=== PATIENT | female | born 1995 | race Two or more races ===

== ENCOUNTER 2018-10-22 04:40 | Emergency (ER) | payer SELFPAY ==
[~2018-10-22] VITALS: Ht 154.9 cm; Wt 49.0 kg
[2018-10-22 05:02] VITALS: BP 106/67
[2018-10-22 05:10] LABS: BILIRUBIN,URINE NEGATIVE (NEG); CLARITY,URINE CLEAR; COLOR,URINE YELLOW; NITRITE,URINE NEGATIVE (NEG); PH,URINE 6.5; PROTEIN,URINE NEGATIVE (NEG-TRACE); UROBILINOGEN,URINE 0.2 mg/dL (0.2 mg/dL)
[2018-10-22 05:14] LABS: U PREG PATIENT NEGATIVE (NEG)
[2018-10-22 05:19] LABS: BACTERIA,URINE MODERATE /HPF (0-FEW); SQUAMOUS EPITHELIAL CELL,UR FEW /LPF
--- NOTE | 2018-10-22 05:55 | PHYS DOC ---
Past Medical History Past Medical History: No Pertinent History Past Surgical History: No Surgical History Alcohol Use: Occasionally Drug Use: None Adult General Chief Complaint Chief Complaint: BACK PAIN OR INJURY HPI HPI Patient is a 23 year old female who presents with back pain and vomiting for the last 24 hours. The patient states she had fever and back pain on Wednesday when she went to her doctor, who diagnosed her with a kidney infection. She was prescribed ciprofloxacin, which she has been taking except, for her last dose at midnight, that she was unable to take due to vomiting. She reports feeling bett er after beginning the antibiotic until Wednesday morning when she began to vomit. She reports 4 episodes of non-bloody, non-bilious vomitus since that time. The last episode was 15 minutes prior to arrival. She currently reports continued nausea. She states she has had intermittent back pain for the past 3 months that has progressively gotten worse. She states the pain started on the left, lower side and has progressed to the right side. Her back pain is currently 5 out of 10 in severity. She has been taking one to 1.2 g per day of ibuprofen which has helped with the pain moderately. She reports increased urgency and frequency still but denies any dysuria or hematuria. Her last menstrual period was 3 weeks ago. She denies any sexual activity but also denies any form of contraception. Review of Systems Review of Systems Constitutional: Reports resolved fever Eyes: Denies redness or eye pain HENT: Denies nasal congestion or sore throat Respiratory: Denies cough or shortness of breath Cardiovascular: Denies chest pain or palpitations GI: Denies abdominal pain, reports nausea and vomiting : Denies dysuria or hematuria. Reports urgency and frequency. Musculoskeletal: Reports lower back pain Integument: Denies rash or skin lesions Neurologic: Denies headache, focal weakness or sensory changes Complete systems were reviewed and found to be within normal limits, except as documented in this note. Current Medications Current Medications Current Medications Medications (Trade) Dose Ordered Sig/Felix Start Time Stop Time Status Last Admin Dose Admin Ceftriaxone Sodium (Rocephin) 1 gm 1X ONCE 10/22/18 06:30 10/22/18 06:31 Famotidine (Pepcid Vial) 20 mg 1X ONCE 10/22/18 06:00 10/22/18 06:01 DC 10/22/18 05:46 20 MG Ketorolac Tromethamine (Toradol 30mg Vial) 15 mg 1X ONCE 10/22/18 06:00 10/22/18 06:01 DC 10/22/18 05:46 15 MG Metoclopramide HCl (Reglan Vial) 10 mg 1X ONCE 10/22/18 06:00 10/22/18 06:01 DC 10/22/18 05:46 10 MG Sodium Chloride 1,000 ml @ 1,000 mls/hr 1X ONCE 10/22/18 06:00 10/22/18 06:59 10/22/18 05:49 1,000 MLS/HR Allergies Allergies Allergies Coded Allergies Type Severity Reaction Last Updated Verified No Known Drug Allergies 10/22/18 No Physical Exam Physical Exam Constitutional: Well developed, well nourished, no acute distress, non-toxic appearance Eyes: PERRL, EOMI, conjunctiva normal, no discharge Neck: Normal range of motion, no tenderness, supple Cardiovascular: Heart rate normal, regular rhythm Lungs & Thorax: Bilateral breath sounds clear to auscultation, no wheezing Abdomen: Soft, diffuse tenderness Skin: Warm, dry, no erythema, no rash Back: b/l CVA tenderness. Tissue texture abnormalities of left paraspinal muscles at level of T10-T12. Extremities: No tenderness, ROM intact, no edema Neurologic: Alert and oriented X 3, normal motor function, normal sensory function, no focal deficits noted Psychologic: Affect normal, judgement normal, mood normal Current Patient Data Vital Signs Vital Signs Date Time Temp Pulse Resp B/P (MAP) Pulse Ox O2 Delivery O2 Flow Rate FiO2 10/22/18 05:02 98.7 79 16 106/67 (80) 98 Room Air 98.7 Lab Values Laboratory Tests Test 10/22/18 04:45 10/22/18 05:48 Urine Collection Type Unknown Urine Color Yellow Urine Clarity Clear Urine pH 6.5 Urine Specific Bob White 1.010 Urine Protein Negative mg/dL (NEG-TRACE) Urine Glucose (UA) Negative mg/dL (NEG) Urine Ketones (Stick) Negative mg/dL (NEG) Urine Blood Negative (NEG) Urine Nitrite Negative (NEG) Urine Bilirubin Negative (NEG) Urine Urobilinogen Dipstick 0.2 mg/dL (0.2 mg/dL) Urine Leukocyte Esterase Moderate (NEG) Urine RBC 1-2 /HPF (0-2) Urine WBC 5-10 /HPF (0-4) Urine Squamous Epithelial Cells Few /LPF Urine Bacteria Moderate /HPF (0-FEW) Urine Test Negative (NEG) White Blood Count 8.0 x10^3/uL (4.0-11.0) Red Blood Count 4.36 x10^6/uL (3.50-5.40) Hemoglobin 13.2 g/dL (12.0-15.5) Hematocrit 38.4 % (36.0-47.0) Mean Corpuscular Volume 88 fL (79-100) Mean Corpuscular Hemoglobin 30 pg (25-35) Mean Corpuscular Hemoglobin Concent 34 g/dL (31-37) Red Cell Distribution Width 12.6 % (11.5-14.5) Platelet Count 194 x10^3/uL (140-400) Neutrophils (%) (Auto) 74 % (31-73) H Lymphocytes (%) (Auto) 14 % (24-48) L Monocytes (%) (Auto) 11 % (0-9) H Eosinophils (%) (Auto) 0 % (0-3) Basophils (%) (Auto) 1 % (0-3) Neutrophils # (Auto) 5.9 x10^3uL (1.8-7.7) Lymphocytes # (Auto) 1.1 x10^3/uL (1.0-4.8) Monocytes # (Auto) 0.9 x10^3/uL (0.0-1.1) Eosinophils # (Auto) 0.0 x10^3/uL (0.0-0.7) Basophils # (Auto) 0.0 x10^3/uL (0.0-0.2) Sodium Level 140 mmol/L (136-145) Potassium Level 3.9 mmol/L (3.5-5.1) Chloride Level 105 mmol/L (98-107) Carbon Dioxide Level 26 mmol/L (21-32) Anion Gap 9 (6-14) Blood Urea Nitrogen 28 mg/dL (7-20) H Creatinine 1.4 mg/dL (0.6-1.0) H Estimated GFR (Cockcroft-Gault) 47.0 BUN/Creatinine Ratio 20 (6-20) Glucose Level 102 mg/dL (70-99) H Lactic Acid Level 1.3 mmol/L (0.4-2.0) Calcium Level 9.5 mg/dL (8.5-10.1) Magnesium Level 2.2 mg/dL (1.8-2.4) Total Bilirubin 0.4 mg/dL (0.2-1.0) Aspartate Amino Transferase (AST) 22 U/L (15-37) Alanine Aminotransferase (ALT) 21 U/L (14-59) Alkaline Phosphatase 68 U/L (46-116) Total Protein 7.7 g/dL (6.4-8.2) Albumin 3.8 g/dL (3.4-5.0) Albumin/Globulin Ratio 1.0 (1.0-1.7) Lipase 227 U/L (73-393) Laboratory Tests 10/22/18 05:48 Laboratory Tests 10/22/18 05:48 EKG EKG [] Radiology/Procedures Radiology/Procedures PROCEDURE: CT ABDOMEN PELVIS WO CONTRAST EXAM: CT Abdomen and Pelvis without IV contrast CLINICAL HISTORY: Bilateral flank pain. COMPARISON: none TECHNIQUE: Helical CT of the abdomen and pelvis without intravenous contrast. Axial, coronal and sagittal reformatted images were generated. PQRS compliance statement - One or more of the following individualized dose reduction techniques were utilized for this study: 1. Automated exposure control 2. Adjustment of the mA and/or kV according to patient size 3. Use of iterative reconstruction technique FINDINGS: Lack of intravenous contrast limits evaluation of solid organs, vasculature, and lymph nodes. Lower chest: Lung bases are clear. Abdomen and Pelvis: No focal liver lesion. Gallbladder is normal. No biliary ductal dilatation. Pancreas is unremarkable. Spleen is normal in appearance. Adrenal glands are unremarkable. A punctate nonobstructing left interpolar renal calculus is seen. No ureteral calculi. No hydronephrosis or hydroureter. Mild fat infiltration is seen about both kidneys. Fat infiltration about the bladder may be seen with cystitis. Moderate to large volume colonic stool content is seen. The appendix is normal. No small or large bowel dilatation. No evidence of bowel obstruction. No abdominal or pelvic lymphadenopathy. No abdominal or pelvic ascites. The uterus and adnexa are grossly unremarkable. Bones: Osseous structures are grossly unremarkable. IMPRESSION: 1. Fat infiltration about the kidneys bilaterally may be seen with pyelonephritis. 2. In addition inflammatory changes about the bladder may be seen with cystitis. 3. Punctate nonobstructing left interpolar renal calculus. No ureteral, right kidney or bladder calculi. No hydronephrosis or hydroureter Electronically signed by: Reece Fabian MD (10/22/2018 6:07 AM) [facility] Course & Med Decision Making Course & Med Decision Making Patient is a 23-year-old female who presents with vomiting and increased back pain for 1 day. The patient states she was diagnosed with a kidney infection on Wednesday and placed on ciprofloxacin treatment. The patient was given Reglan to treat nausea and for anti-spasmodic irritation of the ureters. CBC was ordered which was WNL. Urinalysis with culture showed signs of infection. 1g of Rocephin ordered for infection prophylaxis. Patient given Toradol for pain control with satisfactory relief. CT with findings consistent for pyelonephritis and signs of constipation. Will change to keflex and await UCX. Patient stable for discharge with outpatient follow-up with PCP. Discussed findings and plan with patient and family, who acknowledge understanding and agreement. Dragon Disclaimer Dragon Disclaimer This electronic medical record was generated, in whole or in part, using a voice recognition dictation system. Departure Departure Impression: Primary Impression: Pyelonephritis Additional Impression: Constipation Disposition: 01 HOME, SELF-CARE Condition: STABLE Patient Instructions: Constipation, Adult, [id number], Pyelonephritis, Adult, [id number] Scripts Cephalexin (KEFLEX) 500 Mg Capsule 500 MG PO TID for 7 Days, #21 CAP Prov: LIZBETH ENNIS DO 10/22/18 Ondansetron (ONDANSETRON ODT) 4 Mg Tab.rapdis 1 TAB PO PRN Q6-8HRS PRN for NAUSEA, #16 TAB Prov: LIZBETH ENNIS DO 10/22/18 Magnesium Citrate (MAGNESIUM CITRATE) 296 Ml Solution 296 ML PO ONCE, #296 ML Prov: LIZBETH ENNIS DO 10/22/18 Sennosides/Docusate Sodium (Colace 2-in-1 Tablet) 1 Each Tablet 1 EACH PO QHS PRN for CONSTIPATION, #14 TAB Prov: LIZBETH ENNIS DO 10/22/18 Problem Qualifiers Additional Impression: Constipation Constipation type: unspecified constipation type Qualified Codes: K59.00 - Constipation, unspecified LIZBETH ENNIS DO Oct 22, 2018 05:55
[2018-10-22 05:59] LABS: BASO % 1 % (0-3); EOS % 0 % (0-3); HEMATOCRIT 38.4 % (36.0-47.0); HEMOGLOBIN 13.2 g/dL (12.0-15.5); LYMPH # 1.1 x10^3/uL (1.0-4.8); LYMPH % 14 % (24-48); MEAN CORPUSCULAR HEMOGLOBIN 30 pg (25-35); MEAN CORPUSCULAR HGB CONC 34 g/dL (31-37); MEAN CORPUSCULAR VOLUME 88 fL (79-100); MONO # 0.9 x10^3/uL (0.0-1.1); MONO % 11 % (0-9); NEUT # 5.9 x10^3uL (1.8-7.7); NEUT % 74 % (31-73); PLATELET COUNT 194 x10^3/uL (140-400); RED BLOOD COUNT 4.36 x10^6/uL (3.50-5.40); RED CELL DISTRIBUTION WIDTH 12.6 % (11.5-14.5)
[2018-10-22] MEDS ORDERED: METOCLOPRAMIDE HCL 10 MG/2 ML VIAL. IV ONE (06:00)
[2018-10-22] MEDS ORDERED: KETOROLAC 30 MG/ML VIAL. IV ONE (06:00)
[2018-10-22] MEDS ORDERED: FAMOTIDINE 20 MG/2 ML VIAL IVP ONE (06:00)
[2018-10-22] MEDS ORDERED: IV NORMAL SALINE 1000ML BAG 1,000 ML IV ONE (06:00)
[2018-10-22 06:09] LABS: CALCIUM 9.5 mg/dL (8.5-10.1); CREATININE 1.4 mg/dL (0.6-1.0); POTASSIUM 3.9 mmol/L (3.5-5.1)
--- NOTE | 2018-10-22 06:10 | RAD ---
EXAM: CT Abdomen and Pelvis without IV contrast CLINICAL HISTORY: Bilateral flank pain. COMPARISON: none TECHNIQUE: Helical CT of the abdomen and pelvis without intravenous contrast. Axial, coronal and sagittal reformatted images were generated. PQRS compliance statement - One or more of the following individualized dose reduction techniques were utilized for this study: 1. Automated exposure control 2. Adjustment of the mA and/or kV according to patient size 3. Use of iterative reconstruction technique FINDINGS: Lack of intravenous contrast limits evaluation of solid organs, vasculature, and lymph nodes. Lower chest: Lung bases are clear. Abdomen and Pelvis: No focal liver lesion. Gallbladder is normal. No biliary ductal dilatation. Pancreas is unremarkable. Spleen is normal in appearance. Adrenal glands are unremarkable. A punctate nonobstructing left interpolar renal calculus is seen. No ureteral calculi. No hydronephrosis or hydroureter. Mild fat infiltration is seen about both kidneys. Fat infiltration about the bladder may be seen with cystitis. Moderate to large volume colonic stool content is seen. The appendix is normal. No small or large bowel dilatation. No evidence of bowel obstruction. No abdominal or pelvic lymphadenopathy. No abdominal or pelvic ascites. The uterus and adnexa are grossly unremarkable. Bones: Osseous structures are grossly unremarkable. IMPRESSION: 1. Fat infiltration about the kidneys bilaterally may be seen with pyelonephritis. 2. In addition inflammatory changes about the bladder may be seen with cystitis. 3. Punctate nonobstructing left interpolar renal calculus. No ureteral, right kidney or bladder calculi. No hydronephrosis or hydroureter Electronically signed by: Reece Fabian MD (10/22/2018 6:07 AM) [facility]
[2018-10-22 06:16] LABS: ALBUMIN 3.8 g/dL (3.4-5.0); MAGNESIUM 2.2 mg/dL (1.8-2.4); TOTAL BILIRUBIN 0.4 mg/dL (0.2-1.0); TOTAL PROTEIN 7.7 g/dL (6.4-8.2)
[2018-10-22] MEDS ORDERED: SENN-121 PO (06:23)
[2018-10-22] MEDS ORDERED: ONDA4TAB12 PO (06:23)
[2018-10-22] MEDS ORDERED: MAGN296S9 PO (06:23)
[2018-10-22] MEDS ORDERED: CEPH-264 PO (06:23)
[2018-10-22] MEDS ORDERED: cefTRIAXone IV Push 1 GM VIAL. IVP ONE (06:30)
== END 2018-10-22 06:40 | disposition home or self-care (01) ==
LOC: ER 04:40
DX: N20.0 Calculus of kidney (principal); K59.00 Constipation, unspecified; R11.2 Nausea with vomiting, unspecified; R50.9 Fever, unspecified; M54.5 Low back pain; M53.84 Other specified dorsopathies, thoracic region
CPT/HCPCS: 36415; 74176; 80053; 81001; 81025; 83605; 83690; 83735; 85025; 87086; 96361; 96374; 96375; 99285; J0696; J1885; J2765; J3490; J7030